=== PATIENT | male | born 2000 | race Caucasian/White ===

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

== ENCOUNTER 2024-10-05 15:30 | Outpatient (REF) | payer MEDICAID, SELFPAY ==
[2024-10-05 21:29] LABS: HCT 50.9 % (40.0-50.0); MCH 29.6 pg (27.0-33.0); MCHC 33.4 % (32.0-36.0); MCV 89 fL (80-95); MPV 11.3 fL (8.0-11.0); Platelet Count 273 10^3/uL (130-400); RBC 5.74 10^6/uL (4.36-5.78); RDW 12.3 % (11.8-14.1); RDW-SD 40.2 fL; WBC 13.41 10^3/uL (4.4-10.8)
[2024-10-05 21:54] LABS: ALT 91 U/L (16-63); AST 31 U/L (15-37); Alkaline Phosphatase 108 U/L (46-116); Anion Gap 9.7 mmol/L (3-11); BUN 11 mg/dL (7-18); Bilirubin, Total 0.7 mg/dL (0.2-1.0); CO2 27.3 mmol/L (21.0-32.0); CREATININE 1.4 mg/dL (0.70-1.30); Chloride 105 mmol/L (98-107); Estimated GFR 73.33 (mL/min/1.73m2); Glucose 90 mg/dL (74-106); Potassium 4.5 mmol/L (3.5-5.1); Sodium 142 mmol/L (136-145); TSH 5.05 uIU/mL (0.36-3.74); Total Protein 7.6 g/dL (6.4-8.2)
[2024-10-05 22:45] LABS: Calculated LDL 170 mg/dL (<100); Cholesterol 239 mg/dL (<200); HDL Cholesterol 41 mg/dL (>or=40); Triglyceride 142 mg/dL (<150); Vitamin D 25 Total 18 ng/mL (30-100)
[2024-10-14 09:55] LABS: Testosterone, Free 9.95 ng/dL (5.25-20.7); Testosterone, Total 367 ng/dL (240-950)
== END 2024-10-05 15:31 | disposition home or self-care (01) ==
LOC: NCHCN 15:30
PROVIDERS: PCP Physician Assistant Medical; Visit Provider Physician Assistant
DX: E55.9 Vitamin D deficiency, unspecified (principal); E66.9 Obesity, unspecified; R53.83 Other fatigue; K76.0 Fatty (change of) liver, not elsewhere classified
CPT/HCPCS: 80053; 80061; 82306; 84402; 84403; 85027; 84439; 84443; 84481

== ENCOUNTER 2025-04-13 16:06 | Outpatient (REF) | payer MEDICAID, SELFPAY ==
[2025-04-13 17:03] LABS: HCT 46.4 % (40.0-50.0); HGB 15.4 g/dL (13.5-17.5); MCH 28.9 pg (27.0-33.0); MCHC 33.2 % (32.0-36.0); MCV 87 fL (80-95); MPV 11.8 fL (8.0-11.0); Platelet Count 191 10^3/uL (130-400); RBC 5.32 10^6/uL (4.36-5.78); RDW 12.1 % (11.8-14.1); RDW-SD 38.8 fL; WBC 9.33 10^3/uL (4.4-10.8)
[2025-04-13 17:37] LABS: ALT 102 U/L (16-63); AST 28 U/L (15-37); Albumin 3.6 g/dL (3.4-5.0); Alkaline Phosphatase 95 U/L (46-116); Anion Gap 9.5 mmol/L (3-11); BUN 20 mg/dL (7-18); Bilirubin, Total 0.5 mg/dL (0.2-1.0); CO2 27.5 mmol/L (21.0-32.0); Calcium 9.2 mg/dL (8.5-10.1); Calculated LDL 138 mg/dL (<100); Chloride 102 mmol/L (98-107); Cholesterol 206 mg/dL (<200); Estimated GFR 79.66 (mL/min/1.73m2); Glucose 100 mg/dL (74-106); HDL Cholesterol 31 mg/dL (>or=40); Potassium 4.2 mmol/L (3.5-5.1); Sodium 139 mmol/L (136-145); TSH 4.82 uIU/mL (0.36-3.74); Total Protein 7.3 g/dL (6.4-8.2); Triglyceride 187 mg/dL (<150); Vitamin D 25 Total 20 ng/mL (30-100)
== END 2025-04-13 16:07 | disposition home or self-care (01) ==
LOC: NCHCN 16:06
PROVIDERS: PCP Physician Assistant Medical; Visit Provider Physician Assistant
DX: E55.9 Vitamin D deficiency, unspecified (principal); R53.83 Other fatigue; K76.0 Fatty (change of) liver, not elsewhere classified
CPT/HCPCS: 80053; 80061; 82306; 85027; 84439; 84443